=== PATIENT | female | born 1955 | race Caucasian/White ===

== ENCOUNTER 2022-06-20 17:00 | Emergency (ER) | payer MEDICARE, BC ==
[~2022-06-20] VITALS: Ht 160 cm; Wt 49.9 kg
[2022-06-20] MEDS ORDERED: LIDOCAINE HCL 1% 20 ML VIAL ONE (17:34)
[2022-06-20] MEDS ORDERED: PROPOFOL 200 MG/20 ML BOTTLE IV ONE ×2 (18:00→18:15)
[2022-06-20] MEDS ORDERED: PROPOFOL 200 MG/20 ML BOTTLE ONE (18:06)
--- NOTE | 2022-06-20 18:10 | NUR ---
Placed pt on heart monitor, pulse ox, and Bp cuff. O2 via n/c and NRM is available. RT at the bedside.
[2022-06-20] MEDS ORDERED: LIDOCAINE HCL 1% 20 ML VIAL IJ ONE (18:15)
--- NOTE | 2022-06-20 19:01 | NUR ---
Pt is fully awake A/o x4, able to move all 4 ext. RA sat is stable at 97-98%.
--- NOTE | 2022-06-20 19:25 | NUR ---
Patient discharged to home in stable condition. Written and verbal after care instructions given. Patient verbalizes understanding of instructions. Family at bedside. Stressed follow up or return to ER for worsening s/s. Instructed patient not to drive.
[2022-06-20 19:26] VITALS: BP 140/74; TEMP 97.6; O2SAT 99
== END 2022-06-20 19:25 | disposition home or self-care (01) ==
LOC: ER 17:19
DX: S52.509A Unspecified fracture of the lower end of unspecified radius, initial encounter for closed fracture (principal); W01.0XXA Fall on same level from slipping, tripping and stumbling without subsequent striking against object, initial encounter; Y93.89 Activity, other specified; Y92.89 Other specified places as the place of occurrence of the external cause; Y99.8 Other external cause status
CPT/HCPCS: 25605; 73090; 73110 ×3; 99152; 99285; J3490; J7040; A4663; G0500